=== PATIENT | female | born 1945 | race Caucasian/White ===

== ENCOUNTER 2020-01-05 11:55 | Emergency (ER) | payer MEDICARE ==
[~2020-01-05] VITALS: Ht 162.6 cm; Wt 77.6 kg
[~2020-01-05 11:55] MED LIST: ANASTROZOLE1 MG PO; CITALOPRAM HBR20 MG PO; HYDROCHLOROTHIA25 MG PO; IBUPROFEN PO; LEVAQUIN500 MG PO; LISINOPRIL PO; LOSARTAN POTAS100 MG PO; MELOXICAM7.5 MG PO; OMEPRAZOLE20 MG PO; TEMAZEPAM30 MG PO; ULTRAM50 MG PO
--- OUTSIDE RECORDS SUMMARY | 2020-01-05 11:59 | XMS REPORT | Continuity of Care Document ---
Author Author Sushila MicroarraysVIET ORVIBO Address Unknown Phone Unavailable Care Team Providers Care Sawmill Worker Name Role Phone [employer] Unavailable Un available Problems Problem Status Onset Date Classification Date Reported Comments Source Vitamin D deficiency Active Problem 11/27/2018 Martin Waggoner Polyarthritis Active Problem 11/27/2018 Martin Rosaline Antiphospholipid antibody positive Active Diagnosis 0 11/27/2018 Martin Waggoner Raynaud''s disease with gangrene Active Diagnosis 0 11/27/2018 Martin Waggoner Rheumatoid arthritis with positive rheumatoid factor Active Problem 11/27/2018 Martin Waggoner Medications Medication Details Route Status Patient Instructions Ordering Provider Order Date Source Hydroxychloroquine Sulfate 1 t ablet with food or milk Orally Active 200 MG Orally bid Dru 11/19/2018 Martin Waggoner PredniSONE 1 tab Orally Active 5 MG Orally Once a day Dru 11/19/2018 Martin Waggoner Vitamin D 1 capsule Orally Active 50,000 Orally Once a we ek Dru 11/08/2018 Martin Waggoner Prednisone Taper 3 tablets for 5 days, 2 tablets for 5 days and then 1 tablet for 5 days NA Active 5mg Y ousaf 10/29/2018 Martin Waggoner Meloxicam 1 tablet Orally Active 15 MG Orally Once a day Dru Benitez Waggoner Omeprazole 1 capsule Orally Active 20 MG Orally Once a day Dru Benitez Waggoner Amlodipine Besylate 1 tablet Orally Active 5 MG Orally Once a day Dru Martin Waggoner Citalopram Hydrobromide 1 tabl et Orally Active 20 MG Orally Once a day Dru Martin Waggoner Losartan Potassium 1 tablet Orally Active 100 MG Orally Once a day Dru Martin Waggoner Amlodipine Besylate 1 tablet Orally Active 10 MG Orally Once a day Dru Martin Waggoner Allergies, Adverse Reactions, Alerts Substance Category Reaction Severity Reaction type Status Date Reported Comments Source N.K.D.A. Adverse Reaction Info Not Available Adverse Reaction Active 11/19/2018 Martin Waggoner Immunizations No Data Provided for This Section Results No Data Provided for This Section Pathology Reports No Data Provided for This Section Diagnostic Reports No Data Provided for This Section Consultation Notes No Data Provided for This Section Discharge Summaries No Data Provided for This Section History and Physicals No Data Provided for This Section Vital Signs Vital Sign Value Date Comments Source Weight 164 11/19/2018 Martin Waggoner Height 61 0 11/19/2018 Martin Waggoner Temperature Oral (F) 98.7 F 11/19/2018 Martin Waggoner Heart Rate 76 11/19/2018 Martin Waggoner Diastolic (mm Hg) 60 11/19/2018 Martin Waggoner Systolic (mm Hg) 114 11/19/2018 Martin Waggoner Weight 163.5 10/29/2018 Martin Waggoner Height 61.5 10/29/2018 Martin Waggoner Temperature Oral (F) 98.0 F 10/29/2018 Martin Waggoner Heart Rate 76 10/29/2018 Martin Waggoner Diastolic (mm Hg) 70 10/29/2018 Martin Waggoner Systolic (mm Hg) 112 10/29/2018 Martin Waggoner Encounters No Data Provided for This Section Procedures No Data Provided for This Section Assessment and Plan No Data Provided for This Section Plan of Care No Data Provided for This Section Social History No Data Provided for This Section Family History No Data Provided for This Section Advance Directives No Data Provided for This Section Functional Status No Data Provided for This Section
--- OUTSIDE RECORDS SUMMARY | 2020-01-05 11:59 | XMS REPORT ---
Author Author VIET Gonsales Organization [employer] Address Unknown Phone Unavailable Care Team Providers Care Research Consultant Name Role Phone Dawna Gonsales Unavailable Allergies No Known Allergies Problems Problem Type Condition Code Onset Dates Condition Statu s Problem Vitamin D deficiency E55.9 Active Problem Polyarthritis M13.0 Active Medications Medication Code System Code Instructions Start Date End Date Status Dosage Vitamin D [facility] 67610421091 50,000 Orally Once a week November 08, 2018 Active 1 capsule Results No Known Results Summary Purpose [employer] Submission
--- OUTSIDE RECORDS SUMMARY | 2020-01-05 11:59 | XMS REPORT ---
Author Author VIET Gonsales Organization [employer] Address Unknown Phone Unavailable Care Team Providers Care Float Builder Name Role Phone Dawna Gonsales Unavailable Allergies, Adverse Reactions, Alerts Substance Reaction Event Type N.K.D.A. Info Not Available Non Drug Allergy Problems Problem Type Condition Code Onset Dates Condition Statu s Assessment Antiphospholipid antibody positive R76.0 Active Assessment Raynaud''s disease with gangrene I73.01 Active Problem Antiphospholipid antibody positive R76.0 Active Problem Raynaud''s disease with gangrene I73.01 Active Problem Rheumatoid arthritis with positive rheumatoid factor M 05.9 Active Assessment Rheumatoid arthritis with positive rheumatoid factor M 05.9 Active Problem Polyarthritis M13.0 Active Problem Vitamin D deficiency E55.9 Active Medications Medication Code System Code Instructions Start Date End Date Status Dosage Hydroxychloroquine Sulfate ND 85012845712 200 MG Orally bid A pril 2018Mar 19, 2019 Active 1 tablet with food or milk PredniSONE ND 29952626967 5 MG Orally Once a day November 19, 2018 Mar 19, 2019 Active 1 tab Meloxicam ND 11626073311 15 MG Orally Once a day Ac tive 1 tablet Vitamin D [facility] 51838895092 50,000 Orally Once a week November 08, 2018 February 17, 2019 Active 1 capsule Amlodipine Besylate ND 07493943641 10 MG Orally Once a day Active 1 tablet Losartan Potassium ND 14278265361 100 MG Orally Once a day Active 1 tablet Omeprazole ND 04995549585 20 MG Orally Once a day A ctive 1 capsule Citalopram Hydrobromide ND 64231155227 20 MG Orally Once a day Active 1 tablet Prednisone Taper ND 15046552548 5mg October 29, 2018 Inac tive 3 tablets for 5 days, 2 tablets for 5 days and then 1 tablet for 5 days Vital Signs Date/Time: November 19, 2018 BMI 30.98 Index Weight 164 lbs Height 61 in Temperature 98.7 F Cardiac Monitoring Heart Rate 76 /min Blood Pressure Diastolic 60 mm Hg Blood Pressure Systolic 114 mm Hg Results No Known Results Summary Purpose [employer]Works Submission
--- OUTSIDE RECORDS SUMMARY | 2020-01-05 11:59 | XMS REPORT | Continuity of Care Document ---
Author Author [facility] t Organization [facility] Address [address] [place] [address] Phone Unavailable Care Team Providers Care Transportation Security Screener Name Role Phone Unavailable Unavailable Payers Payer Name Policy Type Policy Number Effective Date Expiration Date S ource Problems Condition Name Condition Details Condition Category Status Onset Date Resolution Date Last Treatment Date Treating Clinician Comments Source Vitamin D deficiency Jen min D deficiency Active Problem 11/27/2018 Martin Waggoner Problem Active 2018-11-27 02:46:08 Sushila Roldan Polyarthritis Poly arthritis Active Problem 11/27/2018 Martin Waggoner Problem Active 2018-11-27 02:46:08 Sushila Roldan 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 Active Diagnosis 11/27/2018 Martin Waggoner Diagnosis Active 2018-11-27 02:46:08 Sushila Roldan 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 N.K.Lucy.A. Active Info Not Available 2018-11-19 00:00:00 Sushila Roldan meperidine HCl DA Active U 2014-11-25 00:00:00 [facility] codeine DA Active SV 2014-11-25 00:00:00 [facility] propoxyphene DA Active SV 2014-11-25 00:00:00 [facility] Medications Ordered Medication Name Filled Medication Name Start Date Stop Da te Current Medication? Ordering Clinician Indication Dosage Frequency Signature (SIG) Comments Components Source Meloxicam 2018-11-27 02:46:08 Yes Wajeeha Dru 1 tablet [facility] Omeprazole 2018-11-27 02:46:08 Yes Wajeeha Dru 1 capsule [facility] Citalopram Hydrobromide 2018-11-27 02:46:08 Yes Wajeeha Dru 1 tablet [facility] Losartan Potassium 2018-11-27 02:46:08 Yes Wajeeha Dru 1 tablet [facility] Amlodipine Besylate 2018-11-27 02:46:08 Yes Wajeeha Dru 1 tablet [facility] Hydroxychloroquine Sulfate 2018-11-19 00:00:00 Yes Tonny la Dru 1 tablet with food or milk [facility] PredniSONE 2018-11-19 00:00:00 Yes Wajeeha Dru 1 tab [facility] Vitamin D 2018-11-08 00:00:00 Yes Wajeeha Dru 1 capsule [facility] Amlodipine Besylate 2018-11-05 02:47:16 Yes Wajeeha Dru 1 tablet [facility] Prednisone Taper 2018-10-29 00:00:00 Yes Wajeeha Dru 3 tablets for 5 days, 2 tablets for 5 days and then 1 tablet for 5 days [facility] Vital Signs Vital Name Observation Time Observation Value Comments Source Weight 2018-11-19 18:00:00 [facility] Height 2018-11-19 18:00:00 [facility] Temperature Oral (F) 2018-11-19 18:00:00 98.7 F [facility] Heart Rate 2018-11-19 18:00:00 [facility] Diastolic (mm Hg) 2018-11-19 18:00:00 [facility] Systolic (mm Hg) 2018-11-19 18:00:00 [facility] Weight 2018-10-29 13:30:00 [facility] Height 2018-10-29 13:30:00 [facility] Temperature Oral (F) 2018-10-29 13:30:00 98.0 F [facility] Heart Rate 2018-10-29 13:30:00 [facility] Diastolic (mm Hg) 2018-10-29 13:30:00 [facility] Systolic (mm Hg) 2018-10-29 13:30:00 [facility] Procedures This patient has no known procedures. Encounters Start Date/Time End Date/[facility] ID Source 2018-11-19 13:00:00 2018-11-19 13:00:00 Outpatient Yordy Waggoner MD [place] [id number] Martin Waggoner MD 2018-11-08 13:29:00 2018-11-08 13:29:00 Outpatient Yordy Waggoner MD [place] [id number] Martin Waggoner MD 2018-10-29 08:30:00 2018-10-29 08:30:00 Outpatient Yoryd Waggoner MD [place] [id number] Martin Waggoner MD Results Test Description Test Time Test Comments Results Result Comments Source - MRI L-SPINE W/O CONT 2019-08-13 12:20:00 FAX: Bianca Tello [phone] [place]: B St: REG FAX: Dereje Mccoy [phone] Name: VIET DILLON [facility] : 1945 Age/S: 74/F Mavis Martinleslie Vasquez Unit #: [id number] Loc: [place] [address] Phys: Bianca Abdul MD Acct: [id number] Dis Date: Status: REG CLI PHONE #: [phone] Exam Date: 08/13/2019 1100 FAX #: [phone] Reason: R20.9 EXAMS: CPT CODE: [id number] MRI L-SPINE W/O CONT 90904 HISTORY: R20.9. COMPARISON: X-ray from May 24, 2019. Location: [facility]. Conus terminating at T12-L1 level. No compression, syrinx or myelomalacia. Vertebral body heights are maintained. Focal fatty deposit within the L1 vertebral body. Marrow signal is normal. Disc space loss from L2-L3 through L5-S1 level with diffuse disc desiccation. No prevertebral soft tissue swelling. Levoscoliosis. At T12-L1 level no disc herniation, canal or foraminal stenosis. At L1-L2 level 5.2 mm right paracentral disc protrusion. Mild right facet hypertrophy resulting in mild canal and moderate right foraminal stenosis. Correlate with radicular symptoms. At L2-L3 level central and left paracentral disc protrusion extending laterally to the left. Mild facet hypertrophy. Mild canal and moderate left foraminal stenosis. Correlate with radicular symptoms. At L3-L4 level levoscoliosis and left severe facet hypertrophy resulting in mild canal and severe left foraminal stenosis and moderate left lateral recess stenosis. Correlate for radicular symptoms for descending left L4 nerve root. At L4- L5 level levoscoliosis and severe left facet hypertrophy noted. 3.6 cm central and right paracentral disc osteophyte complexes well resulting in moderate right foraminal stenosis. Correlate for radicular symptoms for exiting L4 nerve roots bilaterally. At L5-S1 level central and bilateral lateral 5.4 mm disc protrusion and facet hypertrophy resulting in moderate bilateral foraminal stenosis. Moderate facet hypertrophy on th e left. Correlate with radicular symptoms for exiting bilateral L5 nerve roots. Fatty atrophy of the back musculature. IMPRESSION: No conus compression, syrinx or myelomalacia. Vertebral body heights are maintained and the bone marrow signal is normal. PAGE 1 Signed Report (CONTINUED) FAX: Bianca Tello [phone] [place]: St: REG FAX: Dereje Mccoy DO [phone] Name: VIET DILLON [facility] : 1945 Age/S: 74/F [address] Unit #: [id number] Loc: [place] [address] Phys: Bianca Abdul MD Acct: [id number] Dis Date: Status: REG CLI PHONE #: [phone] Exam Date: 08/13/2019 1100 FAX #: [phone] Reason: R20.9 EXAMS: CPT CODE: [id number] MRI L-SPINE W/O CONT 01674 <Continued> Multilevel canal and foraminal stenosis as described above. at 1220 Reported and signed by: Cornel De Souza M.D. CC: Bianca Abdul MD; Dereje Rosario Technologist: ILIANA STEWARTRT - MRI [facility] Date/Time/By: 08/13/2019 (6730) : By: [email or web address] Orig Print D/T: S: 08/13/2019 (2445) PAGE 2 Signed Report - XR L-SPINE 4 + VIEWS 2019-05-14 12:46:00 FAX: Dereje Mccoy DO [phone] [place]: O St: REG -- Name: VIET DILLON [facility] : 1945 Age/S: 74/F [address] Unit #: [id number] Loc: [place] [address] Phys: Dereje Rosario DO Acct: [id number] Dis Date: Status: REG CLI PHONE #: [phone] Exam Date: 05/14/2019 1210 FAX #: [phone] Reason: R20.2 EXAMS: CPT CODE: [id number] XR L-SPINE 4 + VIEWS 42920 HISTORY: R20.2 TECHNIQUE: AP, bilateral oblique, lateral, and lumbosacral views of the lumbar spine. Comparison:None FINDINGS: No acute fracture. There is levoscoliosis of the lower lumbar spine with a Cervantes angle of 13 degrees. There are also severe degenerative changes from L3 through S1 with disc desiccation and prominent vertebral body osteophytes. The regional soft tissues are within normal limits. IMPRESSION: Levoscoliosis in the lower lumbar spine with severe disc degeneration. However no fracture or spondylolisthesis is observed. at 0364 Reported and signed by: Hamilton Cho MD CC: Dereje Rosario Technologist: RT OSVALDO(R) Trnscrd Date/Time/By: 05/14/2019 (5996) : By: [email or web address] Orig Print D/T: S: 05/14/2019 (2983) PAGE 1 Signed Report SCR MAMM BILATERAL OSIRIS CAD DIGITAL 2019-05-12 14:32:55 - SCR MAMM BILATERAL OSIRIS CAD DIGITALBILATERAL DIGITAL SCREENING MAMMOGRAM 3D/2D WITH CAD: 05/12/2019CLINICAL: Asymptomatic. Digital breast tomosynthesis was performed in addition to routine CC and MLO views. Current mammographic images were evaluated by either a [employer]it M-Vu or a [employer] ImageChecker CAD (computer aided detection system). Comparison is made to exams dated 05/09/2018 mammogram, mammogram, and 05/04/2016 mammogram - [facility]. There are scattered fibroglandular tissues in both breasts. There are post operative findings and clips in the left breast status post lumpectomy.No suspicious mass, architectural distortion, malignant type calcification, or lymph node abnormality detected. Breast architecture is stable compared to prior exams.IMPRESSION: NEGATIVEThere is no mammographic evidence of malignancy. Resume annual screening mammography in one year. Erik Moody M.D. ss/:05/12/2019 14:32:55 Human Resources Hr Generalist: Farida SMITH, [facility] sent: BIRADS 1-2 Normal Mammogram BI-RADS: 1 Negative - XR KNEE 1 OR 2 V RT 2019-02-10 13:58:00 FAX: Dereje Mccoy DO [phone] [place]: O St: REG -- Name: VIET DILLON [facility] : 1945 Age/S: 73/F [address] [facility] Unit #: [id number] Loc: [place] [address] Phys: Dereje Rosario DO Acct: [id number] Dis Date: Status: REG CLI PHONE #: [phone] Exam Date: 02/10/2019 1335 FAX #: [phone] Reason: R20.2 EXAMS: CPT CODE: [id number] XR KNEE 1 OR 2 [place] [id number] CLINICAL HISTORY: R20.2 TECHNIQUE: 2 views of the right knee COMPARISON: Right knee radiographs November 25, 2014 FINDINGS: Total knee arthroplasty is redemonstrated. Bones are appropriately aligned. No definite hardware loosening. Soft tissues are within normal limits. IMPRESSION: Stable positioning of right knee arthroplasty. Satisfactory bony alignment. at 7783 Reported and signed by: Hamilton Cho MD CC: Dereje Rosario Technologist: LAUREEN CERVANTES RT (R) Trnscrd Date/Time/By: 02/10/2019 (9631) : By: [email or web address] Orig Print D/T: S: 02/10/2019 (6349) PAGE 1 Signed Report
--- NOTE | 2020-01-05 15:15 | Emergency Department Note ---
History of Present Illnes History of Present Illness Chief Complaint: General Medicine Complaints History of Present Illness This is a 74 year old female . c/o dizziness when she gets up in the morning sts sx x 1 wk denies dizziness at this time Historian: Patient Arrival Mode: Car Onset (how long ago): week(s) (1 wk) Radiation: non-radiation, back, neck, extremity, abdomen, periumbilical, flank, proximal, distal, other Severity: unable to specify (denies dizziness at this time ) Timing of current episode: intermittent Progression: resolved (at this time ) Context: recent illness, recent surgery, recent immobilization, recent travel, trauma/injury, new medications, hx of DVT/PE, non-compliance w/ medications, other Relieving factors: none Exacerbating factors: none Treatments prior to arrival: none Past Medical/Family History Physician Review I have reviewed the patient's past medical and family history. Any updates have been documented here. Past Medical History Recent Fever: No Clinical Suspicion of Infectio: No New/Unexplained Change in Ment: No Past Medical History: Hypertension Other Medical History: BREAST CA, ARTHRITIS Other Surgery: L MASTECTOMY-RECENT, BLADDER SUSPENSION Social History Smoking Cessation: Never Smoker Counseling Performed: Yes Any Illegal Drug Use: No TB Exposure/Symptoms: No Physically hurt or threatened: No Family History Family history of heart diseas: No Other Last Tetanus: OOD Any Pre-Existing Lines (PICC,: No Review of Systems Review of Systems Constitutional: no symptoms EENTM: no symptoms Cardiovascular: no symptoms Respiratory: no symptoms Gastrointestinal: no symptoms Genitourinary: no symptoms Musculoskeletal: no symptoms Neurological: other (dizziness) Psychological: no symptoms Endocrine: no symptoms Hematological/Lymphatic: no symptoms Review of other systems c/o dizziness when she gets up in the morning sts sx x 1 wk denies dizziness at this time All other systems reviewed and negative. Physical Exam Related Data Allergies: Coded Allergies: codeine (Verified Allergy, Mild, N/V, 09/22/14) Triage Vital Signs Vital Signs Date Time Temp Pulse Resp B/P (MAP) Pulse Ox O2 Delivery O2 Flow Rate FiO2 01/05/20 12:42 97.4 74 16 174/84 98 Vital signs reviewed: Yes Physical Exam CONSTITUTIONAL Constitutional: well-developed, well-nourished HENT HENT: normocephalic, atraumatic, oropharynx clear/moist, nose normal HENT L/R: left ext ear normal, right ext ear normal EYES Eyes: PERRL, conjunctivae normal NECK Neck: ROM normal PULMONARY Pulmonary: effort normal, breath sounds normal CARDIOVASCULAR Cardiovascular: regular rhythm, heart sounds normal, capillary refill normal, normal rate GASTROINTESTINAL Abdominal: soft, nontender, bowel sounds normal GENITOURINARY Genitourinary: exam deferred SKIN Skin: warm, dry MUSCULOSKELETAL Musculoskeletal: ROM normal NEUROLOGICAL Neurological: alert, oriented x 3, no gross motor or sensory deficits, other (c/o dizziness when she gets up in the morning sts sx x 1 wk denies dizziness at this time ) PSYCHOLOGICAL Psychological: mood/affect normal, judgement normal Critical Care Time Subsequent provider I assumed direction of critical care for this patient from another provider of my specialty. Assessment & Plan Reassessment Reassessment 74y f presented to ed c/o dizziness when she gets up in the morning sts sx x 1 wk denies dizziness at this time denies cp sob n/v/d la no dark stools no rectal bleeding dizziness at this time - nih 0 no burits no murmurs no jvd no weakness no ataxia - sts gets dizzy when she goes to get up pt sts she wants to go home now - discussed need for wkup pt refused at this time sts will f/u w/ pcp recommend carotid study ct brain basic lab Assessment & Plan Final Impression: (1) Dizziness Assessment & Plan discussed close f/u w/ pcp in am w/o fail plan 1. follow up with your doctor in am without fail 2. return to ed as needed 3. tylenol and motrin as needed 4. increase oral fluids Depart Disposition: HOME, SELF-CARE Last Vital Signs Date Time Temp Pulse Resp B/P (MAP) Pulse Ox O2 Delivery O2 Flow Rate FiO2 01/05/20 12:42 97.4 74 16 174/84 98 Home Meds Reported Medications Levofloxacin (LEVAQUIN) 500 Mg Tablet, 500 MG PO DAILY, #14 TAB 09/25/14 Hydrochlorothiazide (HYDROCHLOROTHIAZIDE) 25 Mg Tablet, 25 MG PO DAILY, #30 TAB 09/22/14 Losartan Potassium (LOSARTAN POTASSIUM) 100 Mg Tablet, 100 MG PO DAILY, TAB 09/22/14 Temazepam (TEMAZEPAM) 30 Mg Capsule, 30 MG PO HS 09/22/14 Meloxicam (MELOXICAM) 7.5 Mg Tablet, 7.5 MG PO AC, #30 TAB 09/22/14 Anastrozole (ANASTROZOLE) 1 Mg Tablet, 1 MG PO DAILY 02/05/14 Citalopram Hydrobromide (CITALOPRAM HBR) 20 Mg Tablet, 20 MG PO DAILY, TAB 02/05/14 Omeprazole (OMEPRAZOLE) 20 Mg Capsule.dr, 20 MG PO DAILY 02/05/14 DULCE MARIA DUNHAM Jan 05, 2020 15:15
== END 2020-01-05 19:47 | disposition home or self-care (01) ==
LOC: ER 11:55
DX: R42 Dizziness and giddiness (principal); I10 Essential (primary) hypertension; Z85.3 Personal history of malignant neoplasm of breast
CPT/HCPCS: 99283

== ENCOUNTER 2021-06-04 10:16 | Emergency (ER) | payer MEDICARE ==
[~2021-06-04] VITALS: Ht 162.6 cm; Wt 77.6 kg
[2021-06-04] MEDS ORDERED: METHYLPREDNISOLONE SOD SUCC 125 MG/2ML VIAL IV STA (10:26)
[2021-06-04] MEDS ORDERED: SODIUM CHLORIDE 0.9% 500ML 500 ML IV ONE (10:30)
[2021-06-04] MEDS ORDERED: SODIUM CHLORIDE 0.9% 500ML 500 ML ONE (10:38)
[2021-06-04] MEDS ORDERED: FAMOTIDINE 20 MG/2 ML VIAL IV ONE ×2 (10:50→11:00)
[2021-06-04] MEDS ORDERED: DIPHENHYDRAMINE HCL INJ 50 MG/ML VIAL IV ONE (11:00)
== END 2021-06-04 11:51 | disposition home or self-care (01) ==
LOC: ER 10:21
DX: L73.9 Follicular disorder, unspecified (principal); L50.9 Urticaria, unspecified
CPT/HCPCS: 99284; J7040

== ENCOUNTER 2022-11-04 21:08 | Inpatient (IN) | payer MEDICARE ==
[~2022-11-04] VITALS: Ht 162.6 cm; Wt 77.6 kg
[2022-11-04] MEDS ORDERED: SODIUM CHLORIDE 0.9% 1000ML 1,000 ML IV STA (21:20)
[2022-11-04 22:36] LABS: BASOPHILS % 0.1 % (0.0-1.0); HEMATOCRIT 35.8 % (34.2-44.1); HEMOGLOBIN 11.6 g/dL (12.0-16.0); LYMPHOCYTES # (AUTO) 0.7 (1.0-3.2); MEAN CORPUSCULAR HEMOGLOBIN 28.3 pg (28-32); MEAN CORPUSCULAR HGB CONC 32.4 g/dL (31-35); MEAN CORPUSCULAR VOLUME 87.3 fL (81-99); MONOCYTES # (AUTO) 1.2 (0.2-0.8); MONOCYTES % 12.8 % (4.4-11.3); NEUTROPHILS # (AUTO) 7.1 (2.1-6.9); NEUTROPHILS % 78.9 % (38.7-80.0); PLATELET COUNT 142 x10e3/uL (140-360); RED CELL DISTRIBUTION WIDTH 14.3 % (11.7-14.4)
[2022-11-04 22:40] LABS: CLARITY,URINE CLOUDY (CLEAR); COLOR,URINE YELLOW (YELLOW); KETONES,URINE TRACE (NEGATIVE); LEUKOCYTE ESTERASE ,URINE TRACE (NEGATIVE); NITRITE,URINE NEGATIVE (NEGATIVE); PROTEIN,URINE DIPSTICK >=300 (NEGATIVE); URINE UROBILINOGEN 1 mg/dL (0.2 - 1)
[2022-11-04 22:54] LABS: ALBUMIN 3.2 g/dL (3.5-5.0); ALBUMIN/GLOBULIN RATIO 0.8 (0.8-2.0); ANION GAP 16.6 mmol/L (8-16); CALCIUM 9.3 mg/dL (8.4-10.2); CREATININE, SERUM 1.15 mg/dL (0.57-1.11); POTASSIUM 3.6 mmol/L (3.5-5.1)
[2022-11-04 23:01] LABS: BACTERIA,URINE MANY /HPF; EPITHELIAL CELLS,URINE FEW /LPF; RENAL EPITHELIAL CELLS,URINE FEW; TRANSITIONAL EPI CELLS,URINE FEW; WBC,URINE (MAN) >50 /HPF (0-5)
[2022-11-04] MEDS ORDERED: CIPROFLOXACIN 500 MG TAB PO SCH (23:15)
[2022-11-04] MEDS ORDERED: ACETAMINOPHEN 325 MG TAB PO STA (23:50)
[2022-11-05] VITALS (7 sets, daily range): BP systolic 110–145; BP diastolic 59–86
[2022-11-05] MEDS ORDERED: LORAZEPAM INJ 2 MG/ML VIAL IV ONE (00:15)
[2022-11-05] MEDS: SODIUM CHLORIDE 0.9% 1000ML 1,000 ML IV SCH ×3 (02:18→08:34)
[2022-11-05 06:00] LABS: BASOPHILS % 0.3 % (0.0-1.0); EOSINOPHILS % 0.4 % (0.0-6.0); HEMATOCRIT 32.6 % (34.2-44.1); HEMOGLOBIN 10.2 g/dL (12.0-16.0); LYMPHOCYTES # (AUTO) 0.8 (1.0-3.2); MEAN CORPUSCULAR HEMOGLOBIN 28.1 pg (28-32); MEAN CORPUSCULAR HGB CONC 31.3 g/dL (31-35); MEAN CORPUSCULAR VOLUME 89.8 fL (81-99); MONOCYTES # (AUTO) 1.2 (0.2-0.8); MONOCYTES % 15.3 % (4.4-11.3); NEUTROPHILS # (AUTO) 5.5 (2.1-6.9); NEUTROPHILS % 72.6 % (38.7-80.0); PLATELET COUNT 117 x10e3/uL (140-360); RED BLOOD COUNT 3.63 x10e6/uL (3.6-5.1); RED CELL DISTRIBUTION WIDTH 14.3 % (11.7-14.4)
[2022-11-05 06:12] LABS: ALBUMIN 2.6 g/dL (3.5-5.0); ALBUMIN/GLOBULIN RATIO 0.8 (0.8-2.0); ANION GAP 13.5 mmol/L (8-16); CALCIUM 8.5 mg/dL (8.4-10.2); CREATININE, SERUM 1.03 mg/dL (0.57-1.11); POTASSIUM 3.5 mmol/L (3.5-5.1)
[2022-11-05 06:22] LABS: CREATINE KINASE 407 IU/L (29-168)
[2022-11-05 14:58] LABS: CREATINE KINASE 223 IU/L (29-168)
[2022-11-05] MEDS: ACETAMINOPHEN 325 MG TAB PO PRN (16:33)
[2022-11-05] MEDS: ENOXAPARIN SOD INJ 40 MG/0.4 ML SYR SC SCH (16:50)
[2022-11-06] VITALS (8 sets, daily range): BP systolic 133–152; BP diastolic 64–94
[2022-11-06] MEDS: SODIUM CHLORIDE 0.9% 1000ML 1,000 ML IV SCH ×4 (00:20→23:17)
[2022-11-06 06:10] LABS: BASOPHILS % 0.2 % (0.0-1.0); EOSINOPHILS % 0.8 % (0.0-6.0); HEMATOCRIT 30.4 % (34.2-44.1); HEMOGLOBIN 9.5 g/dL (12.0-16.0); LYMPHOCYTES # (AUTO) 0.7 (1.0-3.2); LYMPHOCYTES % 12.8 % (18.0-39.1); MEAN CORPUSCULAR HGB CONC 31.3 g/dL (31-35); MEAN CORPUSCULAR VOLUME 89.7 fL (81-99); MONOCYTES # (AUTO) 0.8 (0.2-0.8); MONOCYTES % 15.6 % (4.4-11.3); NEUTROPHILS # (AUTO) 3.8 (2.1-6.9); NEUTROPHILS % 70.4 % (38.7-80.0); PLATELET COUNT 115 x10e3/uL (140-360); RED BLOOD COUNT 3.39 x10e6/uL (3.6-5.1); RED CELL DISTRIBUTION WIDTH 14.3 % (11.7-14.4)
[2022-11-06 06:55] LABS: ALBUMIN 2.2 g/dL (3.5-5.0); ALBUMIN/GLOBULIN RATIO 0.7 (0.8-2.0); ANION GAP 13.5 mmol/L (8-16); CALCIUM 8.1 mg/dL (8.4-10.2); CHOL/HDL RATIO 4.1 (3.0-3.6); CREATININE, SERUM 0.88 mg/dL (0.57-1.11); POTASSIUM 3.5 mmol/L (3.5-5.1)
[2022-11-06 07:15] LABS: THYROID STIMULATING HORMONE 0.253 uIU/mL (0.350-4.940)
[2022-11-06 08:33] LABS: MAGNESIUM 1.8 MG/DL (1.3-2.1); PHOSPHORUS 2.3 MG/DL (2.3-4.7)
[2022-11-06] MEDS ORDERED: ACETAMINOPHEN 325 MG TAB PO PRN (16:15)
[2022-11-06] MEDS ORDERED: ONDANSETRON HCL INJ 2MG/ML 2ML 2 MG/ML VIAL IV PRN (16:15)
[2022-11-06] MEDS ORDERED: METOPROLOL TARTRATE INJ 1 MG/ML VIAL IV PRN (16:15)
[2022-11-06] MEDS ORDERED: POLYETHYLENE GLYCOL 3350 17 GM PACK PO PRN (16:15)
[2022-11-06] MEDS: ENOXAPARIN SOD INJ 40 MG/0.4 ML SYR SC SCH (17:06)
[2022-11-06] MEDS: FAMOTIDINE 20 MG TAB PO SCH (17:06)
[2022-11-06] MEDS: DOCUSATE SODIUM 100 MG CAP PO SCH (17:51)
[2022-11-06] MEDS: ACETAMINOPHEN 325 MG TAB PO PRN (23:16)
[2022-11-07] VITALS (11 sets, daily range): BP systolic 118–154; BP diastolic 66–94
[2022-11-07] MEDS: ACETAMINOPHEN 325 MG TAB PO PRN ×2 (05:14→17:44)
[2022-11-07 06:12] LABS: BASOPHILS % 0.2 % (0.0-1.0); EOSINOPHILS # (AUTO) 0.2 (0.0-0.4); EOSINOPHILS % 3.1 % (0.0-6.0); HEMATOCRIT 28.4 % (34.2-44.1); HEMOGLOBIN 9.2 g/dL (12.0-16.0); LYMPHOCYTES # (AUTO) 0.8 (1.0-3.2); LYMPHOCYTES % 15.7 % (18.0-39.1); MEAN CORPUSCULAR HGB CONC 32.4 g/dL (31-35); MEAN CORPUSCULAR VOLUME 86.3 fL (81-99); MONOCYTES # (AUTO) 0.8 (0.2-0.8); MONOCYTES % 14.5 % (4.4-11.3); NEUTROPHILS # (AUTO) 3.4 (2.1-6.9); NEUTROPHILS % 65.7 % (38.7-80.0); PLATELET COUNT 146 x10e3/uL (140-360); RED BLOOD COUNT 3.29 x10e6/uL (3.6-5.1); RED CELL DISTRIBUTION WIDTH 14.1 % (11.7-14.4); RETICULOCYTE % 0.3 % (0.8-2.2)
[2022-11-07] MEDS: SODIUM CHLORIDE 0.9% 1000ML 1,000 ML IV SCH ×2 (06:18→21:52)
[2022-11-07 06:50] LABS: ALBUMIN/GLOBULIN RATIO 0.6 (0.8-2.0); ANION GAP 12.2 mmol/L (8-16); CALCIUM 7.9 mg/dL (8.4-10.2); CREATININE, SERUM 0.73 mg/dL (0.57-1.11); MAGNESIUM 1.9 MG/DL (1.3-2.1); PHOSPHORUS 2.3 MG/DL (2.3-4.7); POTASSIUM 3.2 mmol/L (3.5-5.1)
[2022-11-07 07:10] LABS: FERRITIN 219.95 ng/mL (4.63-204.00)
[2022-11-07] MEDS: DOCUSATE SODIUM 100 MG CAP PO SCH ×2 (08:22→17:00)
[2022-11-07] MEDS: FAMOTIDINE 20 MG TAB PO SCH ×2 (08:22→16:56)
[2022-11-07] MEDS ORDERED: LOSARTAN POTASSIUM 100 MG TAB PO SCH (09:00)
[2022-11-07] MEDS ORDERED: POTASSIUM CHLORIDE 20 MEQ TAB CR PO ONE (09:45)
[2022-11-07] MEDS: IRON SUCROSE 100 MG in SODIUM CHLORIDE 0.9% 100 ML IV SCH (11:00)
[2022-11-07] MEDS: ENOXAPARIN SOD INJ 40 MG/0.4 ML SYR SC SCH (16:56)
[2022-11-07] MEDS ORDERED: NEURONTIN300 MG PO (17:27)
[2022-11-07] MEDS ORDERED: HYDROXYZINE HCL25 MG PO (17:27)
[2022-11-08] VITALS (8 sets, daily range): BP systolic 125–157; BP diastolic 70–95
[2022-11-08 06:22] LABS: ANION GAP 12.4 mmol/L (8-16); CALCIUM 8.3 mg/dL (8.4-10.2); CREATININE, SERUM 0.71 mg/dL (0.57-1.11); POTASSIUM 3.4 mmol/L (3.5-5.1)
[2022-11-08] MEDS: FAMOTIDINE 20 MG TAB PO SCH ×2 (08:05→17:13)
[2022-11-08] MEDS: LOSARTAN POTASSIUM 100 MG TAB PO SCH (08:29)
[2022-11-08] MEDS: DOCUSATE SODIUM 100 MG CAP PO SCH ×2 (08:29→17:00)
[2022-11-08] MEDS ORDERED: POTASSIUM CHLORIDE 20 MEQ TAB CR PO ONE (09:00)
[2022-11-08] MEDS: IRON SUCROSE 100 MG in SODIUM CHLORIDE 0.9% 100 ML IV SCH (09:33)
[2022-11-08] MEDS: ENOXAPARIN SOD INJ 40 MG/0.4 ML SYR SC SCH (17:13)
[2022-11-08] MEDS: SODIUM CHLORIDE 0.9% 1000ML 1,000 ML IV SCH (17:13)
[2022-11-09] VITALS (8 sets, daily range): BP systolic 141–159; BP diastolic 80–95
[2022-11-09 06:36] LABS: ANION GAP 11.6 mmol/L (8-16); CALCIUM 8.5 mg/dL (8.4-10.2); CREATININE, SERUM 0.7 mg/dL (0.57-1.11); POTASSIUM 3.6 mmol/L (3.5-5.1)
[2022-11-09] MEDS: LOSARTAN POTASSIUM 100 MG TAB PO SCH (08:37)
[2022-11-09] MEDS: ASPIRIN 81 MG ENTERIC COATED PO SCH (08:37)
[2022-11-09] MEDS: DOCUSATE SODIUM 100 MG CAP PO SCH ×2 (08:37→17:00)
[2022-11-09] MEDS: FAMOTIDINE 20 MG TAB PO SCH ×2 (08:37→17:15)
[2022-11-09] MEDS: SODIUM CHLORIDE 0.9% 1000ML 1,000 ML IV SCH (08:44)
[2022-11-09] MEDS: IRON SUCROSE 100 MG in SODIUM CHLORIDE 0.9% 100 ML IV SCH (09:57)
[2022-11-09] MEDS: ENOXAPARIN SOD INJ 40 MG/0.4 ML SYR SC SCH (17:14)
[2022-11-09] MEDS: ACETAMINOPHEN 325 MG TAB PO PRN (20:30)
[2022-11-10] VITALS: BP 136/91
[2022-11-10 04:00] VITALS: BP 174/87
[2022-11-10] MEDS: ACETAMINOPHEN 325 MG TAB PO PRN (05:02)
[2022-11-10 07:41] VITALS: BP 150/89
[2022-11-10 08:08] VITALS: BP 150/89
[2022-11-10] MEDS: FAMOTIDINE 20 MG TAB PO SCH (09:12)
[2022-11-10] MEDS: DOCUSATE SODIUM 100 MG CAP PO SCH (09:12)
[2022-11-10] MEDS: ASPIRIN 81 MG ENTERIC COATED PO SCH (09:12)
[2022-11-10] MEDS: LOSARTAN POTASSIUM 100 MG TAB PO SCH (09:12)
[2022-11-10 11:10] VITALS: BP 140/94
[2022-11-10] MEDS ORDERED: ONDANSETRON HCL 4 MG ORAL DISINTEGRATING TAB PO PRN (11:45)
== END 2022-11-10 14:15 | DRG 871 ==
LOC: ER 21:12 → ERHOLD 22:44 → MED/SURG3 11-05 07:40
PROVIDERS: ADMIT Internal Medicine; ATTEND Internal Medicine
DX: A41.9 Sepsis, unspecified organism (principal); G93.41 Metabolic encephalopathy; N39.0 Urinary tract infection, site not specified; R29.6 Repeated falls; Z85.3 Personal history of malignant neoplasm of breast; G62.9 Polyneuropathy, unspecified; I25.10 Atherosclerotic heart disease of native coronary artery without angina pectoris; F03.90 Unspecified dementia, unspecified severity, without behavioral disturbance, psychotic disturbance, mood disturbance, and anxiety; Z74.09 Other reduced mobility; Z96.651 Presence of right artificial knee joint; M17.11 Unilateral primary osteoarthritis, right knee; B96.20 Unspecified Escherichia coli [E. coli] as the cause of diseases classified elsewhere; D75.839 Thrombocytosis, unspecified; D50.9 Iron deficiency anemia, unspecified; E86.0 Dehydration
CPT/HCPCS: 36415; 70450; 71045; 80048; 80053; 80061; 81001; 82550; 82553; 82607; 82728; 83036; 83540; 83735; 84100; 84443; 84466; 84484; 85025; 85045; 87040; 87086; 87186; 93005; 93306; 93880; 94799; 96360; 96361; 99285; J0696; J1650; J1756; J2060; J2543; J7030; J7050

== ENCOUNTER 2024-11-05 13:31 | Inpatient (IN) | payer MEDICARE ==
[~2024-11-05] VITALS: Ht 162.6 cm; Wt 68.9 kg
[~2024-11-05 13:31] MED LIST changes: +ACETAMINOPHEN325 M1 PO; +ASCORBIC ACID500 M2 PO; +COLACE100 M1 PO; +FAMOTIDINE20 MG PO; +FEROSUL325 MG PO; +HYDROXYZINE HCL25 MG PO; +MIRALAX17 GM PO; +NEURONTIN300 MG PO; +ULTRAM 50MG50 MG PO
[2024-11-05 13:35] VITALS: TEMP 98.9
[2024-11-05 14:19] LABS: BASOPHILS % 0.3 % (0.0-1.0); EOSINOPHILS # (AUTO) 0.3 (0.0-0.4); EOSINOPHILS % 4.5 % (0.0-6.0); HEMATOCRIT 32.2 % (34.2-44.1); HEMOGLOBIN 10.1 g/dL (12.0-16.0); LYMPHOCYTES # (AUTO) 1.2 (1.0-3.2); LYMPHOCYTES % 19.5 % (18.0-39.1); MEAN CORPUSCULAR HEMOGLOBIN 28.2 pg (28-32); MEAN CORPUSCULAR HGB CONC 31.4 g/dL (31-35); MEAN CORPUSCULAR VOLUME 89.9 fL (81-99); MONOCYTES # (AUTO) 0.5 (0.2-0.8); MONOCYTES % 8.7 % (4.4-11.3); NEUTROPHILS # (AUTO) 4.1 (2.1-6.9); NEUTROPHILS % 66.8 % (38.7-80.0); PLATELET COUNT 257 x10e3/uL (140-360); RED BLOOD COUNT 3.58 x10e6/uL (3.6-5.1)
[2024-11-05 14:27] LABS: INR 0.93; PARTIAL THROMBOPLASTIN TIME 29.3 seconds (23.8-35.5)
[2024-11-05 14:38] LABS: ALBUMIN 3.3 g/dL (3.5-5.0); ALBUMIN/GLOBULIN RATIO 1.2 (0.8-2.0); ANION GAP 14.1 mmol/L (8-16); BILIRUBIN,TOTAL 0.3 mg/dL (0.2-1.2); CALCIUM 8.6 mg/dL (8.4-10.2); CREATININE, SERUM 1.4 mg/dL (0.57-1.11); POTASSIUM 4.1 mmol/L (3.5-5.1); TOTAL PROTEIN 6.1 g/dL (6.5-8.1)
[2024-11-05 14:44] LABS: TROPONIN I 0.016 ng/mL (0-0.300)
[2024-11-05 15:00] LABS: CLARITY,URINE TURBID (CLEAR); COLOR,URINE YELLOW (YELLOW); PH,URINE 6.5 (5 - 7)
[2024-11-05 15:01] LABS: BACTERIA,URINE MANY /HPF; BILIRUBIN,URINE NEGATIVE (NEGATIVE); EPITHELIAL CELLS,URINE FEW /LPF; GLUCOSE, URINE NEGATIVE (NEGATIVE); KETONES,URINE NEGATIVE (NEGATIVE); LEUKOCYTE ESTERASE ,URINE SMALL (NEGATIVE); NITRITE,URINE NEGATIVE (NEGATIVE); PROTEIN,URINE DIPSTICK NEGATIVE (NEGATIVE); RBC,URINE 21-50 /HPF (0-5); URINE UROBILINOGEN 0.2 mg/dL (0.2 - 1); WBC,URINE (MAN) >50 /HPF (0-5)
[2024-11-05] MEDS: SODIUM CHLORIDE 0.9% 1000ML 1,000 ML IV STA ×2 (15:22→15:23)
[2024-11-05] MEDS: Vancomycin IV 1 GM in SODIUM CHLORIDE 0.9% 250ML 250 ML IV ONE (15:24)
[2024-11-05 17:30] VITALS: PULSE 73; RESP 16
[2024-11-05] MEDS: SODIUM CHLORIDE 0.9% 1000ML 1,000 ML IV SCH (17:30)
[2024-11-05] MEDS ORDERED: ONDANSETRON HCL INJ 2MG/ML 2ML 2 MG/ML VIAL IV PRN (17:30)
[2024-11-05 19:33] VITALS: BP 136/78; PULSE 84; RESP 18; TEMP 98.6; O2SAT 92
[2024-11-05 20:00] VITALS: BP 136/78; PULSE 84; RESP 18; TEMP 98.6; O2SAT 92
[2024-11-05 23:55] VITALS: BP 126/88; PULSE 80; RESP 16; TEMP 97.5; O2SAT 97
[2024-11-06 03:21] VITALS: BP 126/70; PULSE 81; RESP 16; TEMP 98; O2SAT 96
[2024-11-06 05:37] LABS: BASOPHILS % 0.4 % (0.0-1.0); EOSINOPHILS # (AUTO) 0.4 (0.0-0.4); EOSINOPHILS % 7.8 % (0.0-6.0); HEMATOCRIT 29.2 % (34.2-44.1); LYMPHOCYTES # (AUTO) 1.4 (1.0-3.2); MEAN CORPUSCULAR HEMOGLOBIN 27.9 pg (28-32); MEAN CORPUSCULAR HGB CONC 30.8 g/dL (31-35); MEAN CORPUSCULAR VOLUME 90.4 fL (81-99); MONOCYTES # (AUTO) 0.4 (0.2-0.8); MONOCYTES % 9.1 % (4.4-11.3); NEUTROPHILS # (AUTO) 2.5 (2.1-6.9); NEUTROPHILS % 53.5 % (38.7-80.0); PLATELET COUNT 219 x10e3/uL (140-360); RED BLOOD COUNT 3.23 x10e6/uL (3.6-5.1); RED CELL DISTRIBUTION WIDTH 15.1 % (11.7-14.4); WHITE BLOOD COUNT 4.73 x10e3/uL (4.8-10.8)
[2024-11-06 06:11] LABS: ALBUMIN 2.8 g/dL (3.5-5.0); ALBUMIN/GLOBULIN RATIO 1.2 (0.8-2.0); ANION GAP 10.1 mmol/L (8-16); BILIRUBIN,TOTAL 0.3 mg/dL (0.2-1.2); CREATININE, SERUM 0.9 mg/dL (0.57-1.11); POTASSIUM 4.1 mmol/L (3.5-5.1); TOTAL PROTEIN 5.1 g/dL (6.5-8.1)
[2024-11-06 06:36] LABS: TROPONIN I 0.015 ng/mL (0-0.300)
[2024-11-06 09:11] VITALS: BP 156/79; PULSE 72; RESP 20; TEMP 98.1; O2SAT 99
[2024-11-06 11:49] VITALS: BP 132/65; PULSE 80; RESP 18; TEMP 98.6; O2SAT 97
[2024-11-06] MEDS: TRAMADOL HCL 50 MG TAB PO PRN (13:57)
[2024-11-06] MEDS: DOCUSATE SODIUM 100 MG CAP PO SCH (14:03)
[2024-11-06] MEDS: POLYETHYLENE GLYCOL 3350 17 GM PACK PO SCH (14:03)
[2024-11-06] MEDS: GABAPENTIN 300 MG CAP PO ONE (14:09)
[2024-11-06 16:22] VITALS: BP 143/68; PULSE 75; RESP 18; TEMP 98.5; O2SAT 98
[2024-11-06] MEDS: ASCORBIC ACID 500 MG TAB PO SCH (16:57)
[2024-11-06 20:00] VITALS: BP 137/75; PULSE 73; RESP 16; TEMP 98.6; O2SAT 95
[2024-11-07] VITALS (9 sets, daily range): BP systolic 134–162; BP diastolic 65–86; PULSE 64–96; RESP 16–21; TEMP 97.2–98.8; O2SAT 96–98
[2024-11-07] MEDS: FAMOTIDINE 20 MG TAB PO SCH (09:44)
[2024-11-07] MEDS: AMLODIPINE BESYLATE 10 MG TAB PO SCH (09:45)
[2024-11-07] MEDS: GABAPENTIN 300 MG CAP PO SCH (09:45)
[2024-11-07] MEDS: FERROUS SULFATE 325 MG TAB PO SCH (09:45)
[2024-11-07 14:25] LABS: TROPONIN I 0.023 ng/mL (0-0.300)
[2024-11-07] MEDS: CHOLESTYRAMINE 4 GM PACKET PO PRN (23:40)
[2024-11-08] MEDS ORDERED: LABETALOL HCL 5 MG/ML 20ML VIAL IV PRN (00:45)
[2024-11-08 04:35] VITALS: BP 148/54; PULSE 70; RESP 20; TEMP 98.4; O2SAT 97
[2024-11-08 06:16] LABS: BASOPHILS % 0.4 % (0.0-1.0); EOSINOPHILS # (AUTO) 0.3 (0.0-0.4); EOSINOPHILS % 6.5 % (0.0-6.0); HEMATOCRIT 34.5 % (34.2-44.1); HEMOGLOBIN 10.7 g/dL (12.0-16.0); LYMPHOCYTES # (AUTO) 1.5 (1.0-3.2); LYMPHOCYTES % 29.4 % (18.0-39.1); MEAN CORPUSCULAR HEMOGLOBIN 28.4 pg (28-32); MEAN CORPUSCULAR VOLUME 91.5 fL (81-99); MONOCYTES # (AUTO) 0.4 (0.2-0.8); MONOCYTES % 8.9 % (4.4-11.3); NEUTROPHILS # (AUTO) 2.7 (2.1-6.9); NEUTROPHILS % 54.6 % (38.7-80.0); PLATELET COUNT 174 x10e3/uL (140-360); RED BLOOD COUNT 3.77 x10e6/uL (3.6-5.1); RED CELL DISTRIBUTION WIDTH 14.7 % (11.7-14.4); RETICULOCYTE % 1.3 % (0.8-2.2); WHITE BLOOD COUNT 4.94 x10e3/uL (4.8-10.8)
[2024-11-08 06:44] LABS: ANION GAP 12.8 mmol/L (8-16); CALCIUM 8.6 mg/dL (8.4-10.2); CREATININE, SERUM 0.77 mg/dL (0.57-1.11); PHOSPHORUS 3.1 MG/DL (2.3-4.7); POTASSIUM 3.8 mmol/L (3.5-5.1)
[2024-11-08 06:58] LABS: FERRITIN 83.31 ng/mL (4.63-204.00)
[2024-11-08 08:10] VITALS: BP 154/96; PULSE 79; RESP 20; TEMP 98.3; O2SAT 99
[2024-11-08] MEDS: LOSARTAN POTASSIUM 100 MG TAB PO SCH (09:17)
[2024-11-08] MEDS: ACETAMINOPHEN 325 MG TAB PO PRN (09:17)
[2024-11-08 11:47] VITALS: BP 115/69; PULSE 80; RESP 18; TEMP 97.9; O2SAT 97
[2024-11-08 16:38] VITALS: BP 94/56; PULSE 79; RESP 18; TEMP 98.7; O2SAT 96
[2024-11-08 20:00] VITALS: BP_SYST 93; BP_SYST 94; BP_DIAS 54; BP_DIAS 56; PULSE 79; PULSE 82; RESP 18; TEMP 97.8; TEMP 98.7; O2SAT 96
[2024-11-09] VITALS (7 sets, daily range): BP systolic 121–149; BP diastolic 54–81; PULSE 80–91; RESP 17–20; TEMP 97.2–98.4; O2SAT 96–100
[2024-11-09 05:40] LABS: BASOPHILS % 0.2 % (0.0-1.0); EOSINOPHILS # (AUTO) 0.4 (0.0-0.4); EOSINOPHILS % 6.3 % (0.0-6.0); HEMATOCRIT 31.4 % (34.2-44.1); LYMPHOCYTES # (AUTO) 1.6 (1.0-3.2); MEAN CORPUSCULAR HEMOGLOBIN 28.2 pg (28-32); MEAN CORPUSCULAR HGB CONC 31.8 g/dL (31-35); MEAN CORPUSCULAR VOLUME 88.7 fL (81-99); MONOCYTES # (AUTO) 0.5 (0.2-0.8); MONOCYTES % 8.6 % (4.4-11.3); NEUTROPHILS # (AUTO) 3.5 (2.1-6.9); NEUTROPHILS % 58.7 % (38.7-80.0); PLATELET COUNT 183 x10e3/uL (140-360); RED BLOOD COUNT 3.54 x10e6/uL (3.6-5.1); RED CELL DISTRIBUTION WIDTH 14.6 % (11.7-14.4); WHITE BLOOD COUNT 6.03 x10e3/uL (4.8-10.8)
[2024-11-09] MEDS ORDERED: NEURONTIN400 MG PO (21:22)
[2024-11-10] VITALS (7 sets, daily range): BP systolic 109–153; BP diastolic 61–95; PULSE 76–95; RESP 16–17; TEMP 97.9–99; O2SAT 95–99
[2024-11-10] MEDS ORDERED: ONDANSETRON HCL 4 MG ORAL DISINTEGRATING TAB PO PRN (14:00)
[2024-11-10] MEDS: GABAPENTIN 300 MG CAP PO SCH (21:44)
[2024-11-11] VITALS (10 sets, daily range): BP systolic 97–149; BP diastolic 60–80; PULSE 80–96; RESP 16–21; TEMP 97.7–100.4; O2SAT 95–98
[2024-11-11 06:07] LABS: BASOPHILS % 0.2 % (0.0-1.0); EOSINOPHILS # (AUTO) 0.4 (0.0-0.4); EOSINOPHILS % 6.6 % (0.0-6.0); HEMATOCRIT 30.7 % (34.2-44.1); HEMOGLOBIN 9.7 g/dL (12.0-16.0); LYMPHOCYTES # (AUTO) 1.8 (1.0-3.2); LYMPHOCYTES % 30.6 % (18.0-39.1); MEAN CORPUSCULAR HEMOGLOBIN 28.1 pg (28-32); MEAN CORPUSCULAR HGB CONC 31.6 g/dL (31-35); MONOCYTES # (AUTO) 0.5 (0.2-0.8); MONOCYTES % 8.4 % (4.4-11.3); NEUTROPHILS # (AUTO) 3.1 (2.1-6.9); PLATELET COUNT 192 x10e3/uL (140-360); RED BLOOD COUNT 3.45 x10e6/uL (3.6-5.1); RED CELL DISTRIBUTION WIDTH 15.3 % (11.7-14.4); WHITE BLOOD COUNT 5.72 x10e3/uL (4.8-10.8)
[2024-11-11 06:31] LABS: ANION GAP 14.5 mmol/L (8-16); CALCIUM 8.9 mg/dL (8.4-10.2); CREATININE, SERUM 0.81 mg/dL (0.57-1.11); POTASSIUM 4.5 mmol/L (3.5-5.1)
[2024-11-11] MEDS: PANTOPRAZOLE SOD 40 MG TABEC PO SCH (09:54)
[2024-11-12 03:47] VITALS: BP 124/63; PULSE 83; RESP 19; TEMP 98.1; O2SAT 96
[2024-11-12 08:30] VITALS: BP 145/65; PULSE 91; RESP 18; TEMP 98.4
[2024-11-12 09:27] VITALS: BP 145/65; PULSE 91; RESP 18; TEMP 98.4; O2SAT 96
== END 2024-11-12 15:21 | DRG 690 ==
LOC: ER 13:43 → ERHOLD 17:21 → MED/SURG2 18:34
PROVIDERS: ADMIT Internal Medicine; ATTEND Internal Medicine
DX: N39.0 Urinary tract infection, site not specified (principal); N17.9 Acute kidney failure, unspecified; E87.21 Acute metabolic acidosis; B96.4 Proteus (mirabilis) (morganii) as the cause of diseases classified elsewhere; E86.0 Dehydration; I95.9 Hypotension, unspecified; R19.7 Diarrhea, unspecified; D50.9 Iron deficiency anemia, unspecified; I10 Essential (primary) hypertension; G62.9 Polyneuropathy, unspecified; R26.9 Unspecified abnormalities of gait and mobility; R53.81 Other malaise; R29.6 Repeated falls; Z85.3 Personal history of malignant neoplasm of breast; Z90.12 Acquired absence of left breast and nipple; Z98.890 Other specified postprocedural states; Z79.899 Other long term (current) drug therapy
CPT/HCPCS: 36415; 71045; 80048; 80053; 81001; 82550; 82607; 82728; 82746; 83540; 83605; 83735; 84100; 84466; 84484; 85025; 85045; 85610; 85730; 87040; 87071; 87086; 87186; 87205; 93005; 99252; 99284; J2470; J2543; J7030; J7050